=== PATIENT | female | born 1955 | race American Indian/Alaskan Native ===

== ENCOUNTER 2024-01-14 06:40 | Day surgery (SDC) | payer MEDICARE, OTHER ==
[2024-01-14] MEDS ORDERED: Lidocaine 2% 100 MG/5 ML Syringe IVPUSH ONE (06:41)
[2024-01-14] MEDS ORDERED: Propofol 200 MG/20 ML SDV IV ONE (06:41)
[2024-01-14] MEDS ORDERED: Sodium Chloride 0.9% 10 ML Syringe FLUSH PRN (07:00)
[2024-01-14] MEDS: Lactated Ringers 1,000 ML IV SCH (08:00)
[2024-01-14] MEDS: Simethicone Drops 40 MG/0.6 ML 30 ML Bottle ONE (08:34)
== END 2024-01-14 09:45 | disposition home or self-care (01) ==
LOC: FB.SDS 06:40
PROVIDERS: ATTEND Surgery
DX: Z12.11 Encounter for screening for malignant neoplasm of colon (principal); K57.30 Diverticulosis of large intestine without perforation or abscess without bleeding; I10 Essential (primary) hypertension; E11.9 Type 2 diabetes mellitus without complications; Z87.891 Personal history of nicotine dependence; Z79.84 Long term (current) use of oral hypoglycemic drugs; Z79.899 Other long term (current) drug therapy
CPT/HCPCS: A9270; G0121; J2704; J7120; 00812